=== PATIENT | male | born 1995 | race Caucasian/White ===

== ENCOUNTER 2016-06-04 21:38 | Observation (INO) | payer MEDICAID ==
[~2016-06-04] VITALS: Ht 175.3 cm; Wt 80.8 kg
[~2016-06-04 21:38] MED LIST: CEFAZOLIN IV ONE; DEXAMETHASONE 4 MG/ML VIAL IV ONE; FENTANYL 100 MCG/2 ML AMP IV ONE; LIDOCAINE 2% SYR 5 ML IV ONE; PROPOFOL 20 ML PER ML IV ONE; ROCURONIUM 50 MG VIAL IV ONE
[2016-06-05] VITALS (7 sets, daily range): BP systolic 117–133; RESP 16–20; TEMP 97.2–98.2; Ht 175.3 cm; Wt 80.8 kg
[2016-06-05] MEDS ORDERED: PROMETHAZINE 25 MG/ML VIAL ONE (00:45)
[2016-06-05] MEDS ORDERED: SODIUM CHLORIDE 0.9% 2,000 ML ONE (00:46)
[2016-06-05] MEDS ORDERED: KETOROLAC 30 MG/ML VIAL ONE (00:46)
[2016-06-05] MEDS ORDERED: SODIUM CHLORIDE 0.9% 50 ML IV ONE (00:46)
[2016-06-05] MEDS ORDERED: DILAUDID 1 MG/ML AMP ONE (00:46)
[2016-06-05] MEDS ORDERED: KETOROLAC 30 MG/ML VIAL IV PRN (02:45)
[2016-06-05] MEDS ORDERED: PROMETHAZINE 25 MG/ML VIAL IV PRN (02:45)
[2016-06-05] MEDS: LACT RINGERS 1,000 ML IV SCH ×2 (04:11→14:08)
[2016-06-05] MEDS: DILAUDID 1 MG/ML AMP IV PRN ×5 (07:38→23:53)
[2016-06-05] MEDS ORDERED: LIDOCAINE 1% BUFFERED 1 ML SYR INTRADERM PRN (17:30)
[2016-06-06] VITALS (15 sets, daily range): BP systolic 107–145; RESP 14–22; TEMP 97.4–98.3
[2016-06-06] MEDS ORDERED: LACT RINGERS 1,000 ML IV SCH (06:00)
[2016-06-06] MEDS ORDERED: MIDAZOLAM 2 MG/2 ML INJ IV ONE (06:00)
[2016-06-06] MEDS: DILAUDID 1 MG/ML AMP IV PRN ×3 (07:34→14:09)
[2016-06-06] MEDS ORDERED: MORPHINE 4 MG/ML SYR IV PRN (12:50)
[2016-06-06] MEDS ORDERED: OXYCODONE 5 MG TAB PO PRN (12:50)
[2016-06-06] MEDS ORDERED: MORPHINE 2 MG/ML SYR IV PRN (12:50)
[2016-06-06] MEDS ORDERED: PHENAZOPYRIDINE 100 MG TAB PO ONE (13:40)
[2016-06-06] MEDS ORDERED: ONDANSETRON 4 MG VIAL IV PUSH PRN (13:40)
[2016-06-06] MEDS: MEPERIDINE 25 MG/ML IV PRN ×2 (13:43→14:09)
== END 2016-06-06 13:38 | disposition home or self-care (01) ==
LOC: ENRESERVTM → ENRESERVDT → ENRESERV → ER 21:38 → EMR 21:39 → 5THE 06-05 04:08
PROVIDERS: ADMIT Urology; ATTEND Urology
DX: N20.1 Calculus of ureter (principal); J45.909 Unspecified asthma, uncomplicated; K21.9 Gastro-esophageal reflux disease without esophagitis; Z79.899 Other long term (current) drug therapy
CPT/HCPCS: 36415; 74000; 74176; 76000; 80053; 81001; 83690; 85025; 87088; 88300; 88360; 96361; 96365; 96375